=== PATIENT | male | born 1970 | race Hispanic/Latino ===

== ENCOUNTER 2023-09-08 18:57 | Emergency (ER) | payer OTHER, SELFPAY ==
[2023-09-08 18:59] VITALS: BP 142/76
[2023-09-08 19:26] LABS: % Basophils 0.8 % (0-2); % Eosinophils 1.1 % (0-6); % Immature Granulocytes 0.3 % (0-0.5); % Lymphocytes 16.2 % (20.5-51.1); % Monocytes 7.3 % (1.7-9.3); % Neutrophils 74.3 % (42.2-75.2); Absolute Basophils 0.1 10^3/uL (0-0.2); Absolute Eosinophils 0.1 10^3/uL (0-0.7); Absolute Lymphocytes 1.8 10^3/uL (1.2-3.4); Absolute Monocytes 0.8 10^3/uL (0.1-0.6); Absolute Neutrophils 8.3 10^3/uL (1.4-6.5); Hematocrit 42.4 % (39.0-52.0); Hemoglobin 14.2 g/dL (13.0-18.0); Mean Corp Hgb Conc. 33.5 g/dL (33.0-37.0); Mean Corpuscular Hgb 29.1 pg (27.0-31.0); Mean Corpuscular Volume 86.9 fL (80.0-94.0); Mean Platelet Volume 10.5 fL (7.4-10.4); Nucleated Red Blood Cells % 0 % (-); Platelet Count 258 10^3/uL (130-400); Red Blood Cell Count 4.88 10^6/uL (4.70-6.10); Red Cell Dist. Width 13.2 % (11.5-14.5); White Blood Cell Count 11.2 10^3/uL (4.8-10.8)
[2023-09-08 19:44] LABS: ALT (SGPT) 32 U/L (0-50); AST (SGOT) 30 U/L (17-59); Albumin 4.3 g/dl (3.5-5.0); Alkaline Phosphatase 116 U/L (38-126); Blood Urea Nitrogen 22 mg/dl (9-20); Calcium 9.4 mg/dl (8.4-10.2); Carbon Dioxide 25 mmol/L (22-30); Chloride 104 mmol/L (98-107); Glucose 203 mg/dl (70-99); Lipase 58 U/L (23-300); Potassium 4.5 mmol/L (3.5-5.1); Sodium 133 mmol/L (135-145); Total Bilirubin 0.5 mg/dl (0.2-1.3); Total Protein 7.3 g/dl (6.3-8.2); eGFR > 60.00
--- NOTE | 2023-09-08 22:00 | ED.GENMED ---
History of Present Illness
General
Chief Complaint: Abdominal Pain
Source: patient
Exam Limitations: none
Time Seen by Provider: 09/08/23 21:48
Travel History
Have you had any contact with someone who has COVID-19?: No
Do you have any symptoms of coronavirus? Fever > 100 degrees, chills, cough, shortness of breath, sore throat, loss of taste or smell, muscle aches, or headache?: No
History of Present Illness
History of Present Illness:
This is a 53 year old male that comes in with c/p chest discomfort. States that for the past 2 days he had pressure in his chest. State that when he drinks or eats there is discomfort. State that he has abd discomfort. Denies any fever, chills, SOB,
nausea, vomiting, diarrhea, headache, dizziness, urinary burning.
Past History
Past History
ED Past Medical History: HTN and Other (Diverticulitis, Renal calculus, Colon fistula with drain)
ED Past Surgical History: Appendectomy and Bowel resection (Perforated diverticulitis)
Social History
Tobacco: Non-smoker
Alcohol: None
Drug: None
Personal:
Living: with family
Employment: Employed
Review of Systems
Review of Systems
All Other Systems: ROS reviewed and negative except as documented in HPI and ROS
Constitutional: Reports no symptoms; Denies fever or chills
EENT: Reports no symptoms
Respiratory: Reports no symptoms; Denies cough or trouble breathing
Cardiac: Reports chest pain (Discomfort with eating and swalling liquids)
ABD/GI: Reports abdominal pain; Denies nausea, vomiting or diarrhea
: Reports no symptoms; Denies dysuria, frequency or urgency
Musculoskeletal: Reports no symptoms
Skin: Reports no symptoms
Neurological: Reports no symptoms; Denies dizzy or headache
Psychiatric: Reports no symptoms
Phy Exam
General Physical Exam
General Presentation: no apparent distress
General age: appears stated age
General Skin: warm and dry
General Habitus: normal
General Mental: alert
General Hydration: dry mucous membranes
ENT Exam
ENT Exam: TM's normal, pharynx normal and neck supple
Eye Exam
Eye Exam: EOMI
Cardiovascular Exam
Cardiovascular Exam: regular rate/rhythm, no edema, no murmur and normal peripheral pulses
Pulmonary Exam
Pulmonary Exam: lungs clear, no respiratory distress, no rales, chest non tender, no crackles, no rhonchi, no wheezing and no cough
Gastrointestinal Exam
Gastrointestinal Exam: normal bowel sounds, non tender, soft, no organomegaly, no pulsatile mass and non distended
Musculoskeletal Exam
Musculoskeletal Exam: full ROM and no edema
Skin Exam
Skin Exam: normal color, warm/dry, no rash and no petechia
Psychiatric Exam
Psychiatric Exam: normal mood/affect
Course
Orders/Labs/Results
Orders:
Orders
09/08/23 19:05
Electrocardiogram (*1) Urgent
Reason for Study: Abdominal Pain
EKG- Treatment ONCE
09/08/23 19:11
CMP [Comprehensive Metabolic Panel] Urgent
Complete Blood Count/With Diff Urgent
Lipase Urgent
09/08/23 21:59
Pantoprazole [Protonix IV] 40 mg IV NOW STA
Sucralfate Suspension [Carafate Suspension] 1 gm PO NOW STA
CR Chest - 2 Views Urgent
Comment:
Reason For Exam: Chest pain
09/08/23 22:03
0.9% Sodium Chloride 1000 ml [Nss] 1,000 ml IV BOLUS
09/08/23 22:08
Troponin I Urgent
Abnormal Lab Results
09/08/23
19:11
WBC 11.2 H 10^3/uL
(4.8-10.8)
MPV 10.5 H fL
(7.4-10.4)
Absolute Neuts (auto) 8.3 H 10^3/uL
(1.4-6.5)
Absolute Monos (auto) 0.8 H 10^3/uL
(0.1-0.6)
Lymphocytes % 16.2 L %
(20.5-51.1)
Sodium 133 L mmol/L
(135-145)
BUN 22 H mg/dl
(9-20)
Glucose 203 H mg/dl
(70-99)
09/08/23 19:11
09/08/23 19:11
WBC very slightly elevated. Sodium slightly low. Dehydration. Glucose nonfasting. Lipase normal at 58, Troponin <0.012
Vital Signs
Initial and Last Documented VS:
Initial Vital Signs
Temp Pulse Resp BP Pulse Ox
98.1 F 74 22 142/76 98
09/08/23 18:59 09/08/23 18:59 09/08/23 18:59 09/08/23 18:59 09/08/23 18:59
Last Documented Vital Signs
Temp Pulse Resp BP Pulse Ox
98.1 F 72 16 137/80 97
09/08/23 18:59 09/08/23 22:49 09/08/23 22:49 09/08/23 22:49 09/08/23 22:49
MDM/Problems Addressed
Differential Diagnosis Includes:
Gastritis,
MDM/Problems Addressed:
This is a 53 year old male that comes in with c/o pressure in the chest. States that he has discomfort with eating or drinking. States that this has been going on for the past 2 days.
Will check labs. Chest X-ray, IV fluids, Protonix and Carafate.
Back into see patient. Explained that her chest x-ray is normal along with this Troponin. This is most likely a gastritis. Patient states that he does feels some better after the medication. Will place patient on Protonix daily and Carafate 30 min
to 1 hour before meals and HS. Patient to follow up with the family doctor. Return with any concerns.
Chronic conditions affecting care:
NA
Acute Exacerbation and/or Progression of Chronic Illness:
NA
*Radiology
Radiology exam reviewed: radiology read reviewed (Chest- No acute cardiopulmonary process. )
*Pulse Oximetry
Patient hypoxic: no
*EKG
Interpreted by ED Provider?: Yes
Heart Rate: 75
Rate: normal
Rhythm: sinus
Lotus: left axis deviation
Interval: normal interval
QRS Pattern: normal QRS
Ischemia: no ischemia
*Pool Manager Interpretation
Rate: Pool Manager- N/A
*Critical Care Note
Total Time (30-74mins, 75-104mins- exclusive of procedures): Not Applicable
ED Attending Note
-
Portions of this chart may have been created with voice recognition software.� Occasional wrong word or��sound alike� substitutions may have occurred due to the inherent limitations of voice recognition software.
Discharge Plan
Departure
Patient Disposition: Home (Routine Discharge)
Date of Disposition: 09/08/23
Time of Disposition: 23:00
Patient with high blood pressure during this ER visit?: Yes
Condition: Good
Covid-19: Not Applicable
Discharge Problem:
Gastritis
Instructions: Gastritis (DC), BLOOD PRESSURE
Prescriptions:
New
pantoprazole [Protonix] 40 mg tablet,delayed release (DR/EC)
40 mg PO DAILY Qty: 30 0RF
sucralfate [Carafate] 1 gram tablet
1 g PO ACHS Qty: 40 0RF
Rx Instructions:
30min-1 hour before meals and HS
Dissolve in 2 tsp of water and drink
No Action
hydrocodone-acetaminophen 1 TABLET tablet
1 - 2 tab PO Q4HPRN PRN (Reason: pain) Qty: 30 0RF
Referrals:
UNKNOWN - PT DOES,NOT KNOW [Family Provider] -
Activity Restrictions/Additional Instructions:
As discussed, your blood work shows that your white blood cell count is slightly elevated. Your sodium is slightly low. Please only drink 6-8oz glasses daily. You are a little dehydrated. Your chest x-ray is normal. This looks to be a gastritis. You
have had 2 prescriptions sent to your pharmacy and you have been given the first doses here tonight. Please take the Protonix daily. Please dissolve the Carafate in 2 tsp of water and drink. Please take this 30min to 1 hour before each meal and
again at bedtime. Follow up with the family doctor for recheck. IF YOU HAVE INCREASED OR CHANGING PAIN, OR YOU HAVE ANY OTHER CONCERNS PLEASE RETURN TO THE EMERGENCY ROOM.
Interventions
Interventions:
*Risk Screen - Suicide Last Done: 09/08/23 18:59
*Neglect/Abuse Screening Last Done: 09/08/23 18:59
[id number] Assessment Last Done: 09/08/23 22:16
[2023-09-08] MEDS: CARAFATE SUSPENSION 1 GM PO (22:05)
[2023-09-08] MEDS: PROTONIX IV 40 MG IV (22:05)
[2023-09-08] MEDS: NSS 1000 IV (22:06)
[2023-09-08 22:43] LABS: Troponin I < 0.012 ng/ml
[2023-09-08 22:49] VITALS: BP 137/80
== END 2023-09-08 23:10 | disposition home or self-care (01) ==
LOC: EMR 18:57
PROVIDERS: Clinical Nurse Specialist Family Health; Emergency Medicine; EMERGENCY PHYSICIAN Emergency Medicine
DX: K29.70 Gastritis, unspecified, without bleeding (principal); I10 Essential (primary) hypertension
CPT/HCPCS: 99285; 96374; 96361; 71046; 80053; 83690; 84484; 85025; 93005